=== PATIENT | male | born 1970 | race Caucasian/White ===

== ENCOUNTER 2021-01-21 05:47 | Emergency (ER) | payer OTHER, SELFPAY ==
[2021-01-21 05:49] VITALS: BP 160/92; PULSE 86; RESP 20; TEMP 36.5; O2SAT 98; BMI 24.2
[2021-01-21 06:12] VITALS: BMI 24.2
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
[2021-01-21 06:23] LABS: Basophils # 0.1 K/mm3 (0-0.2); Basophils % 0.3 % (0.1-2.0); Eosinophils # 0.5 K/mm3 (0.0-0.4); Eosinophils % 3.2 % (0.1-12.0); Hematocrit 43.3 % (42.0-52.0); Hemoglobin 14.9 g/dL (14.1-18.0); Lymphocytes # 2.7 K/mm3 (0.7-4.5); Lymphocytes % 18.4 % (10-50); Mean Corpuscular HGB Conc 34.5 g/dL (31.8-35.4); Mean Corpuscular Hemoglobin 30.7 pg (27.0-31.2); Mean Corpuscular Volume 89.1 fl (80-94); Monocytes # 0.9 K/mm3 (0.1-1.0); Monocytes % 5.9 % (1.7-9.3); Neutrophils # 10.8 K/mm3 (1.8-7.8); Neutrophils % 72.4 % (37.0-80.0); Platelet Count 245 K/mm3 (142-424); Red Blood Count 4.86 M/mm3 (4.60-6.20); Red Cell Distribution Width 13.2 % (11.5-17.5); White Blood Count 14.9 K/mm3 (4.8-10.8)
[2021-01-21 06:30] LABS: Chloride 107 mmol/L (98-107); Sodium 141 mmol/L (136-145)
[2021-01-21 06:33] LABS: Alanine Aminotransferase 29 U/L (12-78); Albumin Level 4.5 g/dl (3.5-5.0); Albumin/Globulin Ratio 1.4 (1.1-1.8); Alkaline Phosphatase 97 U/L (38-126); Aspartate Amino Transferase 32 U/L (17-59); Blood Urea Nitrogen 14 mg/dl (9-20); Carbon Dioxide 25 mmol/L (22.0-30.0); Creatinine Clearance Estimated 87 mL/min (50-200); Estimated Glomerular Filt Rate 80 ml/min (>60); GFR (African American) 97 ML/MIN (>60); Globulin 3.2 g/dL (1.3-3.2); Total Protein,Serum 7.7 g/dl (6.3-8.2)
[2021-01-21 06:34] LABS: Calcium 9.3 mg/dl (8.4-10.2); Glucose 118 mg/dl (74-100)
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
[2021-01-21 07:28] LABS: Microscopic, Urine URINE MICROSCOPIC (MICROSCOPIC)
[2021-01-21 07:30] LABS: Appearance,Urine CLEAR (Clear); Bilirubin,Urine Negative (Negative); Blood, Urine Negative (Negative); Color,Urine YELLOW (Yellow); Glucose,Urine (UA) Negative (Negative); Ketones,Urine Negative (Negative); Leukocyte Esterase,Urine Negative (Negative); Nitrate,Urine Negative (Negative); Protein,Urine Negative (Negative); Specific Gravity, Urine <= 1.005 (1.005-1.030); Urobilinogen,Urine 0.2 EU/dl (0.2)
--- NOTE | 2021-01-21 07:32 | PC.NURSE ---
Rad at bedside
[2021-01-21 07:52] LABS: Amorphous Sediment,Urine Trace /lpf
--- NOTE | 2021-01-21 08:11 | PC.NURSE ---
Wet to dry dressing applied to rt elbow per MD request. Pt teaching performed and verbalized understanding of how to perform dressing change himself.
[2021-01-21 08:33] VITALS: BP 136/83; PULSE 82; RESP 18; TEMP 36.5; O2SAT 98
== END 2021-01-21 08:34 | disposition home or self-care (01) ==
PROVIDERS: Emergency Provider Emergency Medicine
DX: S29.011A Strain of muscle and tendon of front wall of thorax, initial encounter (principal); S86.811A Strain of other muscle(s) and tendon(s) at lower leg level, right leg, initial encounter; T07.XXXA Unspecified multiple injuries, initial encounter; V29.9XXA Motorcycle rider (driver) (passenger) injured in unspecified traffic accident, initial encounter; F17.210 Nicotine dependence, cigarettes, uncomplicated; Z23 Encounter for immunization; Z88.0 Allergy status to penicillin
CPT/HCPCS: 70450; 71045; 71275; 72125; 72128; 72131; 72170; 73070; 73090; 73590; 74177; 80053; 81001; 85025; 90715; 96372; 99283

== ENCOUNTER 2021-10-10 15:52 | Observation (INO) | payer OTHER, SELFPAY ==
[2021-10-10 16:06] VITALS: BP 159/88; PULSE 94; RESP 17; TEMP 36.8; O2SAT 99; BMI 24.2
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
--- NOTE | 2021-10-10 16:12 | HMH.EDGENADL ---
ED Disposition Clinical Impression: Acute pancreatitis Qualifiers: Pancreatitis type: unspecified pancreatitis type Acute pancreatitis complication: unspecified Qualified Code(s): K85.90 - Acute pancreatitis without necrosis or infection, unspecified Disposition: Admitted as Observation Condition on Discharge: Good Referrals: Provider,Referral, [Primary Care Provider] - - Critical Care Critical Care Time: No Attestation: On 10/10/21, the high probability of a clinically significant, sudden or life threatening deterioration of the following system(s) required my full and direct attention, intervention and personal management. The time I documented below is in addition to time spent performing reported procedures but includes the following listed in this critical care notation. Medical Decision Making - Medical Records Medical records reviewed: Yes: I reviewed the patient's medical records. - Dash Inquiry Pt receiving controlled substance: No Vital Signs: 10/10/21 16:06 Temperature 98.2 F Temperature Source Oral Pulse Rate [Left Radial] 94 H Respiratory Rate 17 Blood Pressure [Right Arm] 159/88 H Blood Pressure Mean [Right Arm] 111 02 Sat by Pulse Oximetry 99 Oxygen Delivery Method Room Air - Lab Data Lab Results 10/10/21 17:20: WBC 11.1 H, RBC 5.01, Hgb 15.7, Hct 45.7, MCV 91.2, MCH 31.3 H, MCHC 34.3, RDW 13.3, Plt Count 255, MPV 8.6, Neut % (Auto) 68.2, Lymph % (Auto) 19.7, [place] % (Auto) 5.4, Eos % (Auto) 5.0, Baso % (Auto) 1.6, Neut # (Auto) 7.6, Lymph # (Auto) 2.2, [place] # (Auto) 0.6, Eos # (Auto) 0.6 H, Baso # (Auto) 0.2 10/10/21 17:20: Sodium 137, Potassium 3.9, Chloride 104, Carbon Dioxide 24, Anion Gap 12.9, BUN 11, Creatinine 0.80, Estimated Creat Clear 107, Estimated GFR 103, Est GFR ( Amer) 124, Glucose 81, Calcium 9.0, Total Bilirubin 0.9, AST 24, ALT 17, Alkaline Phosphatase 97, Total Protein 7.3, Albumin 4.2, Globulin 3.1, Albumin/Globulin Ratio 1.4 10/10/21 17:20: Lipase 335 H 10/10/21 17:22: Urine Color Yellow, Urine Appearance Clear, Urine pH 6.5, Ur Specific [place] <= 1.005, Urine Protein Negative, Urine Glucose (UA) Negative, Urine Ketones 3+, Urine Blood Negative, Urine Nitrate Negative, Urine Bilirubin 1+ A, Urine Urobilinogen 0.2, Ur Leukocyte Esterase Negative, Urine RBC None, Urine WBC None, Ur Squamous Epith Cells Occasional, Urine Bacteria None Result diagrams: 10/10/21 17:20 10/10/21 17:20 Orders (Tests/Meds): ED MEDICATIONS Generic Name Dose Route Start Last Admin Trade Name Freq PRN Reason Stop Dose Admin Lactated Ringer's 1,000 mls @ 999 mls/hr 10/10/21 17:30 10/10/21 17:27 Lactated Ringer's 1000 Ml Bag IV 10/10/21 18:30 999 mls/hr .[id number] [place] Administration Discontinued Medications Generic Name Dose Route Start Last Admin Trade Name Freq PRN Reason Stop Dose Admin Hydromorphone HCl 1 mg 10/10/21 17:58 10/10/21 18:03 Hydromorphone 2mg/Ml Syringe IV 10/10/21 17:59 1 mg ONCE ONE Administration Ondansetron HCl 8 mg 10/10/21 17:59 10/10/21 18:03 Ondansetron 4mg/2ml Vial IV 10/10/21 18:00 8 mg ONCE ONE Administration ORDERS Category Date Time Status Amylase Stat Lab 10/10/21 18:07 Ordered General Adult HPI - General Stated complaint: ABD pain Time Seen by Provider: 10/10/21 16:13 Source of Information: Patient Limitations: No Limitations - History of Present Illness HPI narrative: left flank pain several days, asoc with nausea Onset (ago): day(s) Radiation: non-radiation Severity: moderate Consistency: constant, intermittent Exacerbating factors: none Associated symptoms: denies other symptoms - Related Data Home Medications Medication Instructions Recorded Confirmed EPINEPHrine [Primatene Mist] 11.7 gm IH NEEDED PRN 01/21/21 01/21/21 Allergies Allergy/AdvReac Type Severity Reaction Status Date / Time Penicillins Allergy Severe Rash Verified 05/19/18 14:43 [facility] History
--- NOTE | 2021-10-10 17:18 | PC.NURSE ---
MARYAM MD on phone with BEVERLY
--- NOTE | 2021-10-10 17:21 | PC.NURSE ---
ED MD at for update on CT scan; awaiting lab results
[2021-10-10 17:27] LABS: Microscopic, Urine URINE MICROSCOPIC (MICROSCOPIC)
[2021-10-10 17:32] LABS: Basophils # 0.2 K/mm3 (0-0.2); Basophils % 1.6 % (0.1-2.0); Eosinophils # 0.6 K/mm3 (0.0-0.4); Hematocrit 45.7 % (42.0-52.0); Hemoglobin 15.7 g/dL (14.1-18.0); Lymphocytes # 2.2 K/mm3 (0.7-4.5); Lymphocytes % 19.7 % (10-50); Mean Corpuscular HGB Conc 34.3 g/dL (31.8-35.4); Mean Corpuscular Hemoglobin 31.3 pg (27.0-31.2); Mean Corpuscular Volume 91.2 fl (80-94); Mean Platelet Volume 8.6 fl (7.4-10.4); Monocytes # 0.6 K/mm3 (0.1-1.0); Monocytes % 5.4 % (1.7-9.3); Neutrophils # 7.6 K/mm3 (1.8-7.8); Neutrophils % 68.2 % (37.0-80.0); Platelet Count 255 K/mm3 (142-424); Red Blood Count 5.01 M/mm3 (4.60-6.20); Red Cell Distribution Width 13.3 % (11.5-17.5); White Blood Count 11.1 K/mm3 (4.8-10.8)
[2021-10-10 17:33] LABS: Appearance,Urine CLEAR (Clear); Blood, Urine Negative (Negative); Color,Urine YELLOW (Yellow); Glucose,Urine (UA) Negative (Negative); Ketones,Urine 3+ (Negative); Leukocyte Esterase,Urine Negative (Negative); Nitrate,Urine Negative (Negative); PH,Urine 6.5 (5.0-8.5); Protein,Urine Negative (Negative); Specific Gravity, Urine <= 1.005 (1.005-1.030); Urobilinogen,Urine 0.2 EU/dl (0.2)
[2021-10-10 17:35] LABS: Lipase 335 U/L (23-300)
[2021-10-10 17:38] LABS: Chloride 104 mmol/L (98-107); Potassium 3.9 mmoL/L (3.5-5.1); Sodium 137 mmol/L (136-145)
[2021-10-10 17:41] LABS: Albumin Level 4.2 g/dl (3.5-5.0); Albumin/Globulin Ratio 1.4 (1.1-1.8); Globulin 3.1 g/dL (1.3-3.2); Total Protein,Serum 7.3 g/dl (6.3-8.2)
[2021-10-10 17:43] LABS: Alanine Aminotransferase 17 U/L (12-78); Alkaline Phosphatase 97 U/L (38-126); Anion Gap 12.9 mEq/L (5-15); Aspartate Amino Transferase 24 U/L (17-59); Bilirubin,Total 0.9 mg/dl (0.2-1.3); Blood Urea Nitrogen 11 mg/dl (9-20); Carbon Dioxide 24 mmol/L (22.0-30.0); Creatinine Clearance Estimated 107 mL/min (50-200); Estimated Glomerular Filt Rate 103 ml/min (>60); GFR (African American) 124 ML/MIN (>60); Glucose 81 mg/dl (74-100)
[2021-10-10 17:56] LABS: Bilirubin,Urine 1+ (Negative)
[2021-10-10 17:57] LABS: Squamous Epithelial Cell,Urine Occasional #/hpf (0-5)
--- NOTE | 2021-10-10 18:17 | PC.NURSE ---
7055 BED ASSIGNMENT REQUESTED. ROOM 215, ALL STAFF NOTIFIED
[2021-10-10 18:25] LABS: Coronavirus 19, PCR Not Detected (NotDetected); Influenza A, PCR Not Detected (NotDetected); Influenza B, PCR Not Detected (NotDetected)
[2021-10-10 18:27] LABS: Amylase 77 U/L (30-110)
[2021-10-10 18:38] VITALS: BP 148/74; PULSE 91; RESP 17; TEMP 36.7; O2SAT 99
[2021-10-10 18:49] VITALS: BMI 22.8
--- NOTE | 2021-10-10 19:49 | PC.NURSE ---
patient up to floor via wheelchair @ this time.
[2021-10-10 21:00] VITALS: O2SAT 99
[2021-10-11] VITALS: BP 158/90; PULSE 76; RESP 22; TEMP 36.8; O2SAT 97
[2021-10-11 04:46] VITALS: BP 126/74; PULSE 75; RESP 20; TEMP 36.8; O2SAT 97
[2021-10-11 05:00] VITALS: BMI 23.1
[2021-10-11 07:02] LABS: Chloride 106 mmol/L (98-107); Sodium 136 mmol/L (136-145)
[2021-10-11 07:03] LABS: Potassium 3.9 mmoL/L (3.5-5.1)
[2021-10-11 07:05] LABS: Alanine Aminotransferase 14 U/L (12-78); Albumin Level 3.7 g/dl (3.5-5.0); Albumin/Globulin Ratio 1.3 (1.1-1.8); Alkaline Phosphatase 89 U/L (38-126); Anion Gap 10.9 mEq/L (5-15); Aspartate Amino Transferase 25 U/L (17-59); Bilirubin,Total 0.8 mg/dl (0.2-1.3); Blood Urea Nitrogen 11 mg/dl (9-20); Carbon Dioxide 23 mmol/L (22.0-30.0); Creatinine Clearance Estimated 103 mL/min (50-200); Estimated Glomerular Filt Rate 103 ml/min (>60); GFR (African American) 124 ML/MIN (>60); Globulin 2.9 g/dL (1.3-3.2); Total Protein,Serum 6.6 g/dl (6.3-8.2)
[2021-10-11 07:06] LABS: Calcium 8.5 mg/dl (8.4-10.2); Glucose 71 mg/dl (74-100)
[2021-10-11 07:28] LABS: Basophils # 0.1 K/mm3 (0-0.2); Eosinophils # 0.6 K/mm3 (0.0-0.4); Eosinophils % 6.3 % (0.1-12.0); Hematocrit 44.4 % (42.0-52.0); Hemoglobin 14.5 g/dL (14.1-18.0); Lymphocytes # 2.1 K/mm3 (0.7-4.5); Lymphocytes % 22.8 % (10-50); Mean Corpuscular HGB Conc 32.7 g/dL (31.8-35.4); Mean Corpuscular Hemoglobin 30.6 pg (27.0-31.2); Mean Corpuscular Volume 93.4 fl (80-94); Mean Platelet Volume 9.2 fl (7.4-10.4); Monocytes # 0.6 K/mm3 (0.1-1.0); Monocytes % 6.1 % (1.7-9.3); Neutrophils # 5.8 K/mm3 (1.8-7.8); Neutrophils % 63.7 % (37.0-80.0); Platelet Count 235 K/mm3 (142-424); Red Blood Count 4.75 M/mm3 (4.60-6.20); Red Cell Distribution Width 13.5 % (11.5-17.5); White Blood Count 9.1 K/mm3 (4.8-10.8)
[2021-10-11 08:00] VITALS: BP 140/89; PULSE 72; RESP 20; TEMP 36.6; O2SAT 98
--- NOTE | 2021-10-11 08:02 | P.CONPHA_ITS ---
[facility] VTE Monitoring - Patient Demographics Admission date: 10/11/21 Report Date: 10/11/21 Time: 08:02 Allergies/Adverse Reactions: Patient Allergies Penicillins Allergy (Severe, Verified 05/19/18 14:43) Rash Height: 1.68 m Weight: 65.408 kg Patient Problems: Current Active Problems Acute pancreatitis (Acute) - VTE Risk Labs: VTE Related Lab Results Hgb 14.5 g/dL (14.1-18.0) 10/11/21 05:55 Hct 44.4 % (42.0-52.0) 10/11/21 05:55 Plt Count 235 K/mm3 (142-424) 10/11/21 05:55 BUN 11 mg/dl (9-20) 10/11/21 05:55 Creatinine 0.80 mg/dl (0.66-1.25) 10/11/21 05:55 Estimated Creat Clear 103 mL/min (50-200) 10/11/21 05:55 Was VTE Risk Assessment Performed: Yes VTE Score: 2 VTE Risk Level: Very Low Risk Clinical Trial Participant: No - Prophylaxis VTE Prophylaxis Ordered?: Yes Types of VTE Prophylaxis: TEDS Knee High
--- NOTE | 2021-10-11 08:24 | HMH.HP ---
*Admission Date: 10/10/21 *Chief complaint: abdominal pain *History of present illness: 51 year old male, with no primary care medical provider, presented to [facility] ER yesterday with a 1 week history of fairly intense upper abdominal pain associated with nausea, vomiting and diarrhea. He has had minimal oral intake for the last week. He denies fever and chills. He has not vomited up blood or passed any blood in his stool. He has no sick contacts and no recent travel. He rarely drinks alcohol but dose smoke cigarettes. [facility] History Medical History: Reports:: Asthma Denies:: Cancer, Diabetes Mellitus Type 1, Diabetes Mellitus Type 2, MRSA *Have you ever received a pneumonia vaccine?: No *Have you received a flu vaccine this season?: No Other Surgeries: Yes: No Previous Surgery - *Social History Last grade of school completed: 9th or 10th Smoking Status: Current every day smoker Tobacco Type: cigarettes # Packs/Day (cigarettes): 2 Alcohol Intake: former Alcohol Intake Frequency:: a few times a month Substance Use Type: marijuana Last Used Substance: days (ago) *Occupational Status:: unemployed Housing: other Household Members: spouse, children *Travel in the last 8 weeks: None Family Hx:: Cancer Review of Systems - Constitutional Denies chills, Denies fever(s) - Eyes Denies change in vision - ENT Denies change in voice - *Cardiovascular Denies chest pain - *Respiratory Denies cough - *Genitourinary Denies difficulty urinating - *Musculoskeletal Denies joint pain - Integumentary/Breasts Denies rash - *Neurologic Denies abnormal walking, Denies dizziness - Psychiatric Denies anxiety - Endocrine Denies excessive sweating Meds Home Medications Medication Instructions Recorded Confirmed Type EPINEPHrine [Primatene Mist] 1 inh PO NEEDED PRN 10/10/21 10/10/21 History Allergies Allergy/AdvReac Type Severity Reaction Status Date / Time Penicillins Allergy Severe Rash Verified 05/19/18 14:43 Exam Vital signs and Labs for Last 24 Hours: Temp Pulse Resp BP Pulse Ox 98.3 F 75 20 126/74 97 10/11/21 04:46 10/11/21 04:46 10/11/21 04:46 10/11/21 04:46 10/11/21 04:46 Laboratory Results - last 24 hr 10/10/21 17:20: WBC 11.1 H, RBC 5.01, Hgb 15.7, Hct 45.7, MCV 91.2, MCH 31.3 H, MCHC 34.3, RDW 13.3, Plt Count 255, MPV 8.6, Neut % (Auto) 68.2, Lymph % (Auto) 19.7, [place] % (Auto) 5.4, Eos % (Auto) 5.0, Baso % (Auto) 1.6, Neut # (Auto) 7.6, Lymph # (Auto) 2.2, [place] # (Auto) 0.6, Eos # (Auto) 0.6 H, Baso # (Auto) 0.2 10/10/21 17:20: Sodium 137, Potassium 3.9, Chloride 104, Carbon Dioxide 24, Anion Gap 12.9, BUN 11, Creatinine 0.80, Estimated Creat Clear 107, Estimated GFR 103, Est GFR ( Amer) 124, Glucose 81, Calcium 9.0, Total Bilirubin 0.9, AST 24, ALT 17, Alkaline Phosphatase 97, Total Protein 7.3, Albumin 4.2, Globulin 3.1, Albumin/Globulin Ratio 1.4 10/10/21 17:20: Lipase 335 H 10/10/21 17:20: Amylase 77 10/10/21 17:22: Urine Color Yellow, Urine Appearance Clear, Urine pH 6.5, Ur Specific [place] <= 1.005, Urine Protein Negative, Urine Glucose (UA) Negative, Urine Ketones 3+, Urine Blood Negative, Urine Nitrate Negative, Urine Bilirubin 1+ A, Urine Urobilinogen 0.2, Ur Leukocyte Esterase Negative, Urine RBC None, Urine WBC None, Ur Squamous Epith Cells Occasional, Urine Bacteria None 10/10/21 18:21: SARS-CoV-2 (PCR) Not detected, Influenza A Untype (PCR) Not detected, Influenza Type B (PCR) Not detected 10/11/21 05:55: WBC 9.1, RBC 4.75, Hgb 14.5, Hct 44.4, MCV 93.4, MCH 30.6, MCHC 32.7, RDW 13.5, Plt Count 235, MPV 9.2, Neut % (Auto) 63.7, Lymph % (Auto) 22.8, [place] % (Auto) 6.1, Eos % (Auto) 6.3, Baso % (Auto) 1.0, Neut # (Auto) 5.8, Lymph # (Auto) 2.1, [place] # (Auto) 0.6, Eos # (Auto) 0.6 H, Baso # (Auto) 0.1 10/11/21 05:55: Sodium 136, Potassium 3.9, Chloride 106, Carbon Dioxide 23, Anion Gap 10.9, BUN 11, Creatinine 0.80, Estimated Creat Clear 103, Estimated GFR 103, Est GFR (
[2021-10-11 12:00] VITALS: BP 149/65; PULSE 70; RESP 20; TEMP 36.6; O2SAT 98
--- NOTE | 2021-10-11 15:49 | PC.NURSE ---
patient has done well. complaints of hunger earlier in shift. tolerating clears. states pain is just annoying and at this time has not required pain medication. rings out as needed. vitals stable.
[2021-10-11 16:00] VITALS: BP 151/82; PULSE 74; RESP 22; TEMP 36.9; O2SAT 96
[2021-10-11 20:00] VITALS: BP 156/98; PULSE 84; RESP 18; TEMP 36.7; O2SAT 96
[2021-10-12] VITALS: BP 156/89; PULSE 78; RESP 17; TEMP 37; O2SAT 97
[2021-10-12 04:00] VITALS: BP 144/95; PULSE 75; RESP 16; TEMP 36.9; O2SAT 95
--- NOTE | 2021-10-12 04:56 | PC.NURSE ---
Patient has requested one dose of pain medication this RN's shift with favorable results.
[2021-10-12 05:00] VITALS: BMI 22.8
[2021-10-12 07:49] LABS: Basophils # 0.1 K/mm3 (0-0.2); Basophils % 0.4 % (0.1-2.0); Eosinophils # 0.5 K/mm3 (0.0-0.4); Eosinophils % 4.1 % (0.1-12.0); Hematocrit 44.1 % (42.0-52.0); Hemoglobin 15.2 g/dL (14.1-18.0); Lymphocytes # 1.9 K/mm3 (0.7-4.5); Lymphocytes % 17.1 % (10-50); Mean Corpuscular HGB Conc 34.4 g/dL (31.8-35.4); Mean Corpuscular Hemoglobin 30.5 pg (27.0-31.2); Mean Corpuscular Volume 88.9 fl (80-94); Mean Platelet Volume 8.5 fl (7.4-10.4); Monocytes # 0.6 K/mm3 (0.1-1.0); Monocytes % 5.2 % (1.7-9.3); Neutrophils # 8.1 K/mm3 (1.8-7.8); Neutrophils % 73.2 % (37.0-80.0); Platelet Count 248 K/mm3 (142-424); Red Blood Count 4.97 M/mm3 (4.60-6.20); Red Cell Distribution Width 12.6 % (11.5-17.5); White Blood Count 11.1 K/mm3 (4.8-10.8)
[2021-10-12 08:00] VITALS: BP 115/106; PULSE 68; RESP 16; TEMP 36.8; O2SAT 99
[2021-10-12 08:07] LABS: Chloride 106 mmol/L (98-107); Sodium 140 mmol/L (136-145)
[2021-10-12 08:08] LABS: Potassium 3.8 mmoL/L (3.5-5.1)
[2021-10-12 08:10] LABS: Alanine Aminotransferase 15 U/L (12-78); Alkaline Phosphatase 101 U/L (38-126); Amylase 74 U/L (30-110); Anion Gap 14.8 mEq/L (5-15); Aspartate Amino Transferase 28 U/L (17-59); Bilirubin,Total 0.7 mg/dl (0.2-1.3); Blood Urea Nitrogen 8 mg/dl (9-20); Carbon Dioxide 23 mmol/L (22.0-30.0); Creatinine Clearance Estimated 102 mL/min (50-200); Estimated Glomerular Filt Rate 103 ml/min (>60); GFR (African American) 124 ML/MIN (>60)
[2021-10-12 08:11] LABS: Albumin Level 4.1 g/dl (3.5-5.0); Albumin/Globulin Ratio 1.3 (1.1-1.8); Calcium 8.8 mg/dl (8.4-10.2); Globulin 3.2 g/dL (1.3-3.2); Glucose 102 mg/dl (74-100); Lipase 321 U/L (23-300); Total Protein,Serum 7.3 g/dl (6.3-8.2)
--- NOTE | 2021-10-12 08:29 | P.PN_ITS ---
Internal Medicine - PN: Subj *Date: 10/12/21 *Time: 08:29 Interval history: Patient feels much better today, anxious to go home. Exam Vital signs and Labs for Last 24 Hours: Temp Pulse Resp BP Pulse Ox 98.5 F 75 16 144/95 H 95 10/12/21 04:00 10/12/21 04:00 10/12/21 04:00 10/12/21 04:00 10/12/21 04:00 Laboratory Results - last 24 hr 10/12/21 07:17: WBC 11.1 H, RBC 4.97, Hgb 15.2, Hct 44.1, MCV 88.9, MCH 30.5, MCHC 34.4, RDW 12.6, Plt Count 248, MPV 8.5, Neut % (Auto) 73.2, Lymph % (Auto) 17.1, [place] % (Auto) 5.2, Eos % (Auto) 4.1, Baso % (Auto) 0.4, Neut # (Auto) 8.1 H, Lymph # (Auto) 1.9, [place] # (Auto) 0.6, Eos # (Auto) 0.5 H, Baso # (Auto) 0.1 10/12/21 07:17: Sodium 140, Potassium 3.8, Chloride 106, Carbon Dioxide 23, Anion Gap 14.8, BUN 8 L D, Creatinine 0.80, Estimated Creat Clear 102, Estimated GFR 103, Est GFR ( Amer) 124, Glucose 102 H, Calcium 8.8, Total Bilirubin 0.7, AST 28, ALT 15, Alkaline Phosphatase 101, Total Protein 7.3, Albumin 4.1 D , Globulin 3.2, Albumin/Globulin Ratio 1.3, Amylase 74, Lipase 321 H Vital Signs - 24 hr 10/11/21 12:00 10/11/21 16:00 10/11/21 20:00 Temperature 97.8 F 98.5 F 98.1 F Pulse Rate [Left Radial] 70 74 84 Respiratory Rate 20 22 18 Blood Pressure [Right Arm] 149/65 H 151/82 H 156/98 H 02 Sat by Pulse Oximetry 98 96 96 10/12/21 00:00 10/12/21 04:00 Temperature 98.6 F 98.5 F Pulse Rate [Left Radial] 78 75 Respiratory Rate 17 16 Blood Pressure [Right Arm] 156/89 H 144/95 H 02 Sat by Pulse Oximetry 97 95 I & O for Last 24 hours: Intake & Output 10/09/21 10/10/21 10/11/21 10/12/21 23:59 23:59 23:59 23:59 Intake Total 2416 / 2416 1693 / 1693 Output Total 1350 / 1350 Balance 1066 / 1066 1693 / 1693 Weight 142 lb 4.8 oz 144 lb 3.2 oz 142 lb 1.6 oz - Constitutional no acute distress - *Routine HEENT Exam Head: Present: normocephalic Eye: Present: EOMI, PERRL ENT: Present: mucous membranes moist - *Routine Neck Exam Present: supple. Absent: lymphadenopathy - *Routine Respiratory Exam Present: CTA bilaterally - *Routine Cardiovascular Exam Present: RRR - *Routine Abdominal Exam Present: soft, normoactive bowel sounds. Absent: tenderness - *Routine Extremities Exam Absent: cyanosis, clubbing, edema - *Routine Skin Exam Present: warm. Absent: rash - *Routine Neurological Exam Present: alert, oriented X3 Assessment and Plan (1) Nicotine dependence, unspecified, uncomplicated Status: Acute Category: Medical Code(s): F17.200 - Nicotine dependence, unspecified, uncomplicated (2) Acute pancreatitis Status: Acute Qualifiers: Pancreatitis type: unspecified pancreatitis type Acute pancreatitis complication: unspecified Qualified Code(s): K85.90 - Acute pancreatitis without necrosis or infection, unspecified Category: Medical Code(s): K85.90 - Acute pancreatitis without necrosis or infection, unspecified - Assessment and plan all Dx Assessment and Plan for all problems:: OK to discharge home with office f/u in 5 days.
[2021-10-12 09:20] VITALS: BP 165/98
--- NOTE | 2021-10-14 15:42 | CARE MANAGER ---
Attempted to contact patient related to hospital discharge follow up. Left VM message. TONY Mensah
--- NOTE | 2021-10-15 14:01 | CARE MANAGER ---
Contacted patient's . Patient is doing better. He has less pain and has tolerated some solid food. He is being cautious with eating. Aware of follow up appointment. Denies questions or concerns at this time.
--- NOTE | 2021-10-15 21:57 | HMH.DCSUM ---
General - General Admission date:: 10/10/21 Discharge date: 10/12/21 HPI HPI: 51 year old male, with no primary care medical provider, presented to [facility] ER yesterday with a 1 week history of fairly intense upper abdominal pain associated with nausea, vomiting and diarrhea. He has had minimal oral intake for the last week. He denies fever and chills. He has not vomited up blood or passed any blood in his stool. He has no sick contacts and no recent travel. He rarely drinks alcohol but dose smoke cigarettes. Hospital Course Hospital Course: By 10/12/2019, the patient was feeling better. He was started on clear liquids. His abdominal pelvic CT showed some mesenteric fascial plane surrounding the pancreas compatible with pancreatitis along with bilateral nonspecific perinephric stranding reflecting acute versus chronic inflammatory change. By 10/12/2021, the patient was much better and anxious to go home. His lipase improved slightly. He was stable to discharge and will follow up in 1 week. Objective Vital signs: Temp Pulse Resp BP Pulse Ox 98.2 F 68 16 165/98 H 99 10/12/21 08:00 10/12/21 08:00 10/12/21 08:00 10/12/21 09:20 10/12/21 08:00 Narrative: - Constitutional no acute distress - *Routine HEENT Exam Head: Present: normocephalic Eye: Present: EOMI, PERRL ENT: Present: mucous membranes moist - *Routine Neck Exam Present: supple. Absent: lymphadenopathy - *Routine Respiratory Exam Present: rhonchi. Absent: wheezes - *Routine Cardiovascular Exam Present: RRR - *Routine Abdominal Exam Present: soft, normoactive bowel sounds, tenderness (epigastric). Absent: rebound, guarding - *Routine Rectal Exam Rectal:: deferred - *Routine Genitalia Exam Genitalia:: deferred - *Routine Extremities Exam Absent: cyanosis, clubbing, edema - *Routine Skin Exam Present: warm. Absent: rash - *Routine Neurological Exam Present: alert, oriented X3 DS: Diagnosis - Discharge Diagnosis (1) Nicotine dependence, unspecified, uncomplicated Status: Acute (2) Acute pancreatitis Status: Acute Discharge Plan - Patient Discharge Instructions ACTIVITY: Continue current activity DIET: other (bland, low fat/protein) Additional Instructions: 08/19/[address] Garcia Patient Instructions: DI for Pancreatitis - Follow up Plan Follow up with: Jun Garcia MD [Staff Physician] - 10/17/21 Disposition: Home, Self-Care Condition at discharge:: Improved Home Medications: Home Medications Medication Instructions Recorded Confirmed Type EPINEPHrine [Primatene Mist] 1 inh PO NEEDED PRN 10/10/21 10/10/21 History Prescriptions/Medication Reconciliation: Continued EPINEPHrine [Primatene Mist] 1 inh PO NEEDED PRN PRN Reason: asthma - Problem Reconciliation Problems Reviewed?: Yes
== END 2021-10-12 09:25 | disposition home or self-care (01) ==
LOC: ER 18:11 → 2ND 20:50
PROVIDERS: Admitting Provider Family Medicine; Emergency Provider Emergency Medicine; Visit Provider Family Medicine
DX: K85.90 Acute pancreatitis without necrosis or infection, unspecified (principal); Z20.822 Contact with and (suspected) exposure to COVID-19; F17.210 Nicotine dependence, cigarettes, uncomplicated
CPT/HCPCS: 36415; 74176; 80053; 81001; 82150; 83690; 85025; 96375; 99285; C9803; G0378; J2405; U0003; U0005

== ENCOUNTER 2024-05-03 16:05 | Emergency (ER) | payer OTHER, SELFPAY ==
[2024-05-03 16:06] VITALS: BP 203/124; BP 207/126; PULSE 78; RESP 16; TEMP 36.7; O2SAT 99; BMI 19.3
--- NOTE | 2024-05-03 16:13 | ED_ITS ---
<Statement entered by Jessica Pelaez DO - 05/04/24 00:24> I was consulted by the SURESH, and we discussed the complexity of the problems being addressed. I approved the treatment and management plan for this patient's care in the emergency department, thus performing a substantive portion of the medical decision making. Jessica Pelaez DO Discharge Plan Disposition Patient Disposition: Home, Self-Care Condition: Good Prescriptions Prescriptions: New lisinopril 10 mg tablet 10 mg PO DAILY Qty: 10 0RF No Action epinephrine 11.7 GM HFA aerosol inhaler 1 inh PO NEEDED PRN (Reason: asthma) Rx Instructions: pt takes over the counter Referrals Follow up/Referrals: Gopal Gomez DO [Staff Physician] - See instructions Provider,Referral, [Primary Care Provider] - See instructions Activity Restrictions/Add. Instructions Additional Instructions/Restrictions: I have sent medication into your pharmacy for your blood pressure. Be sure to pick it up and start it tomorrow. I have referred you to Dr. Gopal Gomez as your primary care. Please call make an appointment in the morning. Clinical Impressions Clinical Impression: Hypertension, uncontrolled Headache Qualifiers: Headache type: unspecified Headache chronicity pattern: acute headache I ntractability: not intractable Qualified Code(s): R51.9 - Headache, unspecified Print Language Print Language: Swedish Discharge ED Provider: Jessica Pelaez General Adult HPI <HECTOR Reich - Last Filed: 05/03/24 22:05> General Chief complaint: Recheck/Abnormal Lab/Rx Stated complaint: HBP 183/115 Time Seen by Provider: 05/03/24 16:13 History of Present Illness HPI narrative: Patient presents for evaluation of high blood pressure and headache. Patient has not seen a doctor in 2 years. He has noticed occasionally that his blood pressure has been trending up. He does not currently have a PCP. Patient also reports that he has had a headache that is generalized not acute just been progressive for a couple of days that is not responsive to any of his [id number] treatments. He denies any fever chills hemoptysis hematochezia melena nausea vomit diarrhea vision changes change in level of consciousness or sensorium. Related Data Home Medications ?Medication ?Instructions ?Recorded ?Confirmed epinephrine 0.125 mg/actuation 1 inh PO NEEDED PRN asthma 10/10/21 10/10/21 aerosol inhaler Previous Rx's ?Medication ?Instructions ?Recorded lisinopril 10 mg tablet 10 mg PO DAILY #10 tabs 05/03/24 Allergies Allergy/AdvReac Type Severity Reaction Status Date / Time Penicillins Allergy Severe Rash Verified 05/19/18 14:43 [facility] <HECTOR Reich - Last Filed: 05/03/24 22:05> [facility] Disclaimer: The information contained in this section may have been updated after the patient was seen, as this information can be updated by other users. Social History Smoking Status: Current every day smoker tobacco type: cigarettes packs per day: 2 second hand exposure: Yes alcohol intake: former substance use type: marijuana current occupational status: unemployed Travel in the last 8 weeks: None household members: spouse and children housing: other caffeine: Yes Other Medical History Have you received the Flu Vaccine for this season: No Have you received the Pneumonia Vaccine: No <HECTOR Reich - Last Filed: 05/03/24 22:05> ROS Obtained: Yes Systems reviewed as appropriate & no additional complaints except as documented Physical Exam <HECTOR Reich - Last Filed: 05/03/24 22:05> General General appearance: alert and in no apparent distress Respiratory Respiratory exam: Present normal lung sounds bilaterally Cardiovascular Cardiovascular exam: Present regular rate Neurological Exam Neurological exam: Present alert and oriented X3 Medical Decision Making <HECTOR Reich - Last Filed: 05/03/24 22:05> Medical Records Medical records reviewed: Yes I reviewed the patient's medical records. Screening: Per USPSTF and CDC recommendations, given the prevalence of disease in our region, it is our hospital?s policy to screen for HIV and viral Hepatitis for all patients aged 18 and over and those with ongoing risk factors. Dash Inquiry Pt receiving controlled substance: No Vital Signs: 05/03/24 16:06 05/03/24 16:30 05/03/24 17:00 Temperature 98.0 F Temperature Source Oral Pulse Rate 76 85 Pulse Rate [Radial] 78 Respiratory Rate 16 Blood Pressure 152/109 H 174/106 H Blood Pressure [Left Arm] 203/124 H Blood Pressure [Right Arm] 207/126 H Blood Pressure Mean 142 Blood Pressure Mean [Left Arm] 150 Blood Pressure Mean [Right Arm] 153 Blood Pressure Source Blood Pressure Source [Left Arm] Automatic Cuff Blood Pressure Source [Right Arm] Automatic Cuff Blood Pressure Position Blood Pressure Position [Left Arm] Supine Blood Pressure Position [Right Arm] Sitting 02 Sat by Pulse Oximetry 99 97 95 Oxygen Delivery Method Room Air 05/03/24 17:30 05/03/24 18:00 05/03/24 18:39 Temperature 98.0 F Temperature Source Oral Pulse Rate 70 71 66 Pulse Rate [Radial] Respiratory Rate 16 Blood Pressure 169/104 H 174/105 H 184/116 H Blood Pressure [Left Arm] Blood Pressure [Right Arm] Blood Pressure Mean 132 128 Blood Pressure Mean [Left Arm] Blood Pressure Mean [Right Arm] Blood Pressure Source Automatic Cuff Blood Pressure Source [Left Arm] Blood Pressure Source [Right Arm] Blood Pressure Position Sitting Blood Pressure Position [Left Arm] Blood Pressure Position [Right Arm] 02 Sat by Pulse Oximetry 95 97 Oxygen Delivery Method Room Air Lab Data Lab results reviewed: Yes I reviewed the patient's lab results. Lab Results 05/03/24 17:18: WBC 12.2 H, RBC 4.92, Hgb 15.9, Hct 45.0, MCV 91.5, MCH 32.2 H, MCHC 35.2, RDW 13.2, Plt Count 207, MPV 8.4, Neut % (Auto) 64.9, Lymph % (Auto) 24.7, [place] % (Auto) 6.4, Eos % (Auto) 3.2, Baso % (Auto) 0.7, Neut # (Auto) 7.9 H, Lymph # (Auto) 3.0, [place] # (Auto) 0.8, Eos # (Auto) 0.4, Baso # (Auto) 0.1, PT 10.4, INR 0.92, Sodium 138, Potassium 3.9, Chloride 107, Carbon Dioxide 25, Anion Gap 9.9, BUN 18, Creatinine 0.90, Estimated Creat Clear 75, Estimated GFR 89, Est GFR ( Amer) 108, Glucose 89, Calcium 9.5, Magnesium 2.0, Total Bilirubin 0.6, AST 32, ALT 14, Alkaline Phosphatase 90, Troponin I < 0.01, Total Protein 7.1, Albumin 4.4, Globulin 2.7, Albumin/Globulin Ratio 1.6, TSH 2.03, F ree T4 Index 4.1 L, Thyroxine (T4) 11.2 H, T3 Uptake 37, HIV 1&2 Antibody Rapid Nonreactive 05/03/24 17:18 05/03/24 17:18 Orders (Tests/Meds): ED MEDICATIONS Discontinued Medications Generic Name Dose Route Start Last Admin Trade Name Fernando PRN Reason Stop Dose Admin Acetaminophen 1,000 mg 05/03/24 16:52 05/03/24 17:23 Acetaminophen 1,000mg/100ml Vial IV 05/03/24 16:53 1,000 mg ONCE ONE Administration ORDERS Category Date Time Status Chest XR 2 view (NOT portable) [XR chest 2V] Stat Exams 05/03/24 16:52 Completed CBC w/Auto Diff [Complete Blood Count Auto Diff] Stat Lab 05/03/24 17:18 Completed CMP [Comprehensive Metabolic Panel] Stat Lab 05/03/24 17:18 Completed HIV (1&2) Antibody Rapid Stat Lab 05/03/24 17:18 Completed Hep C Ab with Reflex to RNA Stat Lab 05/03/24 17:18 Received INR [Prothrombin Time INR] Stat Lab 05/03/24 17:18 Completed Magnesium Stat Lab 05/03/24 17:18 Completed Thyroid Panel Stat Lab 05/03/24 17:18 Completed Trop I [Troponin I] Stat Lab 05/03/24 17:18 Completed Medical Decision Narrative: In summary patient is a 53-year-old male who presents to the emergency department for evaluation of blood pressure and chest pain. Patient is significantly hypertensive on arrival with a blood pressure of 207 systolic 126 diastolic but breathing 16 times a minute with a heart rate of 78 satting at 99% on room air upon arrival, afebrile. Physical exam is remarkable for no nuchal rigidity or meningeal signs, pupils equal round reactive to light, [place] Coma Score 15 awake alert and oriented person place and circumstance, normal breath sounds normal heart sounds normal sinus rhythm on the bedside monitor satting at 99% on room air. Differential diagnosis includes uncontrolled essential hypertension versus tension headache versus endorgan damage etc. Initial workup will be conducted with hematologic labs plain film chest x-ray urinalysis. Initial interventions include headache cocktail. Initial workup reviewed by me shows that his hematologic labs are nonactionable plain film chest x-ray shows no acute processes via my informal interpretation. Upon repeat evaluation patient had complete resolution of his headache after initial intervention. Given this patient is appropriate for discharge with a prescription for lisinopril sent to his pharmacy and referral to Dr. Gopal Gomez for a PCP. <Jessica Pelaez, DO - Last Filed: 05/03/24 20:22> Vital Signs: 05/03/24 16:06 05/03/24 16:30 05/03/24 17:00 Temperature 98.0 F Temperature Source Oral Pulse Rate 76 85 Pulse Rate [Radial] 78 Respiratory Rate 16 Blood Pressure 152/109 H 174/106 H Blood Pressure [Left Arm] 203/124 H Blood Pressure [Right Arm] 207/126 H Blood Pressure Mean 142 Blood Pressure Mean [Left Arm] 150 Blood Pressure Mean [Right Arm] 153 Blood Pressure Source Blood Pressure Source [Left Arm] Automatic Cuff Blood Pressure Source [Right Arm] Automatic Cuff Blood Pressure Position Blood Pressure Position [Left Arm] Supine Blood Pressure Position [Right Arm] Sitting 02 Sat by Pulse Oximetry 99 97 95 Oxygen Delivery Method Room Air 05/03/24 17:30 05/03/24 18:00 05/03/24 18:39 Temperature 98.0 F Temperature Source Oral Pulse Rate 70 71 66 Pulse Rate [Radial] Respiratory Rate 16 Blood Pressure 169/104 H 174/105 H 184/116 H Blood Pressure [Left Arm] Blood Pressure [Right Arm] Blood Pressure Mean 132 128 Blood Pressure Mean [Left Arm] Blood Pressure Mean [Right Arm] Blood Pressure Source Automatic Cuff Blood Pressure Source [Left Arm] Blood Pressure Source [Right Arm] Blood Pressure Position Sitting Blood Pressure Position [Left Arm] Blood Pressure Position [Right Arm] 02 Sat by Pulse Oximetry 95 97 Oxygen Delivery Method Room Air Lab Data Lab Results 05/03/24 17:18: WBC 12.2 H, RBC 4.92, Hgb 15.9, Hct 45.0, MCV 91.5, MCH 32.2 H, MCHC 35.2, RDW 13.2, Plt Count 207, MPV 8.4, Neut % (Auto) 64.9, Lymph % (Auto) 24.7, [place] % (Auto) 6.4, Eos % (Auto) 3.2, Baso % (Auto) 0.7, Neut # (Auto) 7.9 H, Lymph # (Auto) 3.0, [place] # (Auto) 0.8, Eos # (Auto) 0.4, Baso # (Auto) 0.1, PT 10.4, INR 0.92, Sodium 138, Potassium 3.9, Chloride 107, Carbon Dioxide 25, Anion Gap 9.9, BUN 18, Creatinine 0.90, Estimated Creat Clear 75, Estimated GFR 89, Est GFR ( Amer) 108, Glucose 89, Calcium 9.5, Magnesium 2.0, Total Bilirubin 0.6, AST 32, ALT 14, Alkaline Phosphatase 90, Troponin I < 0.01, Total Protein 7.1, Albumin 4.4, Globulin 2.7, Albumin/Globulin Ratio 1.6, TSH 2.03, F ree T4 Index 4.1 L, Thyroxine (T4) 11.2 H, T3 Uptake 37, HIV 1&2 Antibody Rapid Nonreactive Orders (Tests/Meds): ED MEDICATIONS Discontinued Medications Generic Name Dose Route Start Last Admin Trade Name Freq PRN Reason Stop Dose Admin Acetaminophen 1,000 mg 05/03/24 16:52 05/03/24 17:23 Acetaminophen 1,000mg/100ml Vial IV 05/03/24 16:53 1,000 mg ONCE ONE Administration ORDERS Category Date Time Status Chest XR 2 view (NOT portable) [XR chest 2V] Stat Exams 05/03/24 16:52 Completed CBC w/Auto Diff [Complete Blood Count Auto Diff] Stat Lab 05/03/24 17:18 Completed CMP [Comprehensive Metabolic Panel] Stat Lab 05/03/24 17:18 Completed HIV (1&2) Antibody Rapid Stat Lab 05/03/24 17:18 Completed Hep C Ab with Reflex to RNA Stat Lab 05/03/24 17:18 Received INR [Prothrombin Time INR] Stat Lab 05/03/24 17:18 Completed Magnesium Stat Lab 05/03/24 17:18 Completed Thyroid Panel Stat Lab 05/03/24 17:18 Completed Trop I [Troponin I] Stat Lab 05/03/24 17:18 Completed ECG Data Tracing #1: I reviewed this ECG and interpreted as documented below: Normal sinus rhythm with short VT interval with a VT interval of [address] changes concerning for ischemia. Criteria for left ventricular hypertrophy ECG initial impression date: 05/03/24 ECG initial impression time: 20:21 Critical Care <HECTOR Reich - Last Filed: 05/03/24 22:05> Critical Care Time Critical Care Time: No
[2024-05-03 16:30] VITALS: BP 152/109; PULSE 76; O2SAT 97
--- NOTE | 2024-05-03 16:52 | XR_ITS ---
PROCEDURE INFORMATION: Exam: XR Chest Exam date and time: 05/03/2024 5:02 PM Age: 53 years old Clinical indication: Cardiovascular condition or disease; Other: Malignant hypertension TECHNIQUE: Imaging protocol: Radiologic exam of the chest. Views: 2 views. COMPARISON: CR XR CHEST 2V 05/03/2024 5:02 PM FINDINGS: Lungs: There is mild coarsening of the bronchovascular markings with hyperinflation suggesting underlying obstructive airways disease. Pleural spaces: No large effusion or pneumothorax. Heart/Mediastinum: No evidence of mediastinal widening or cardiac silhouette enlargement; the mediastinum and heart appear within normal limits for contour and size. Bones/joints: No evidence of acute osseous abnormalities within the visualized portions of the thoracic spine and ribs. Osseous structures appear appropriate for patient age. IMPRESSION: No dense parenchymal consolidation, pleural effusion, or pneumothorax.
[2024-05-03 17:00] VITALS: BP 174/106; PULSE 85; O2SAT 95
--- NOTE | 2024-05-03 17:08 | ECG_ITS ---
APPROVED REPORT Exam: Resting ECG HR:77 bpm ECG Measurements Heart Rate 77 AXES VT 116 P 80 QRSd 99 QRS 87 QT 395 T -70 QTc 426 Conclusion SINUS RHYTHM WITH SHORT VT INTERVAL POSSIBLE RIGHT ATRIAL ENLARGEMENT [0.25mV P-WAVE] POSSIBLE LEFT ATRIAL ENLARGEMENT [-0.1mV P-WAVE IN V1/V2] LEFT VENTRICULAR HYPERTROPHY AND ST-T CHANGE [VOLTAGE CRITERIA PLUS ST/T ABNORMALITY] ABNORMAL ECG Electronically signed by : EBONY ECHAVARRIA, 05/04/2024 00:47:20
[2024-05-03] MEDS: ACETAMINOPHEN 1,000MG/100ML VIAL 1000 MG IV (17:23)
[2024-05-03 17:30] VITALS: BP 169/104; PULSE 70; O2SAT 95
[2024-05-03 17:41] LABS: Basophils # 0.1 K/mm3 (0-0.2); Basophils % 0.7 % (0.1-2.0); Eosinophils # 0.4 K/mm3 (0.0-0.4); Eosinophils % 3.2 % (0.1-12.0); Hemoglobin 15.9 g/dL (14.1-18.0); Lymphocytes % 24.7 % (10-50); Mean Corpuscular HGB Conc 35.2 g/dL (31.8-35.4); Mean Corpuscular Hemoglobin 32.2 pg (27.0-31.2); Mean Corpuscular Volume 91.5 fl (80-94); Mean Platelet Volume 8.4 fl (7.4-10.4); Monocytes # 0.8 K/mm3 (0.1-1.0); Monocytes % 6.4 % (1.7-9.3); Neutrophils # 7.9 K/mm3 (1.8-7.8); Neutrophils % 64.9 % (37.0-80.0); Platelet Count 207 K/mm3 (142-424); Red Blood Count 4.92 M/mm3 (4.60-6.20); Red Cell Distribution Width 13.2 % (11.5-17.5); White Blood Count 12.2 K/mm3 (4.8-10.8)
[2024-05-03 17:53] LABS: Alanine Aminotransferase 14 U/L (12-78); Albumin Level 4.4 g/dl (3.5-5.0); Albumin/Globulin Ratio 1.6 (1.1-1.8); Alkaline Phosphatase 90 U/L (38-126); Anion Gap 9.9 mEq/L (5-15); Aspartate Amino Transferase 32 U/L (17-59); Bilirubin,Total 0.6 mg/dl (0.2-1.3); Blood Urea Nitrogen 18 mg/dl (9-20); Calcium 9.5 mg/dl (8.4-10.2); Carbon Dioxide 25 mmol/L (22.0-30.0); Chloride 107 mmol/L (98-107); Creatinine Clearance Estimated 75 mL/min (50-200); Estimated Glomerular Filt Rate 89 ml/min (>60); GFR (African American) 108 ML/MIN (>60); Globulin 2.7 g/dL (1.3-3.2); Glucose 89 mg/dl (74-100); Potassium 3.9 mmoL/L (3.5-5.1); Sodium 138 mmol/L (136-145); Total Protein,Serum 7.1 g/dl (6.3-8.2)
[2024-05-03 18:00] VITALS: BP 174/105; PULSE 71; O2SAT 97
[2024-05-03 18:05] LABS: INR 0.92 (0.9-1.1); Prothrombin Time 10.4 seconds (10.1-12.5)
[2024-05-03 18:08] LABS: Troponin I < 0.01 ng/ml (0.00-0.034)
[2024-05-03 18:12] LABS: Free Thyroxine Index 4.1 ug/dL (5.93-13.13); T4 (Thyroxine) 11.2 ug/dl (5.53-11.0); Triiodothryronine (T3) Uptake 37 % (23.5-40.5)
[2024-05-03 18:25] LABS: Thyroid Stimulating Hormone 2.03 uIU/mL (0.465-4.68)
[2024-05-03 18:34] LABS: HIV (1&2) Antibody Rapid NONREACTIVE (NONREACTIVE)
[2024-05-03 18:39] VITALS: BP 184/116; PULSE 66; RESP 16; TEMP 36.7; O2SAT 98
[2024-05-05 05:15] LABS: HCV Ab Non Reactive (Non Reactive)
== END 2024-05-03 18:39 | disposition home or self-care (01) ==
PROVIDERS: Physician Assistant; Emergency Provider Emergency Medicine
DX: R51.9 Headache, unspecified (principal); I10 Essential (primary) hypertension
CPT/HCPCS: 71046; 80050; 80053; 83735; 84436; 84443; 84479; 84484; 85025; 85610; 86803; 87389; 93005; 96374; 99285; J0131

== ENCOUNTER 2024-05-27 10:06 | Outpatient (CLI) | payer OTHER, SELFPAY ==
--- NOTE | 2024-05-27 10:09 | CT_ITS ---
FINAL REPORT TECHNIQUE: Thin section axial images were obtained from the lung apices to the upper abdomen by computed tomography. Reformatted images were obtained and reviewed. This study was performed with techniques to keep radiation doses al low as reasonably achievable (ALARA). Individualized dose reduction techniques using automated exposure control or adjustment of mA and/or kV according to the patient's size were employed. CLINICAL HISTORY: lung cancer screening current smoker 1.5ppd x 37 years COMPARISON: CTA of the chest 01/21/2021 FINDINGS: CHEST CT LOW DOSE 54-year-old male, current smoker, 31-cwzb-gbzb history. CTDI vol (mGy): 2.9 DLP (mGy-cm): 106.29 There is no axillary adenopathy. There is an enlarged precarinal node, measuring 24 mm in diameter, similar to the previous CT of 2020, likely reactive. The heart is normal in size. Mild to moderate coronary artery calcifications are present. There is no pericardial or pleural effusion. There are patchy pulmonary groundglass opacities, consistent with areas of edema or alveolitis. There is diffuse bronchial wall thickening consistent with bronchitis. Lung window images demonstrate a 4 mm right lower lobe nodule, best seen on series 3, image #45. There is also a 5 mm nodule in the right middle lobe, best seen on image #46 of series 3. There are several other less than 5 mm in size nonspecific nodules noted.. Limited images of the upper abdomen are unremarkable. IMPRESSION: Lung-RADS category 2S, with the S designation for the patchy pulmonary ground glass opacities as described. Recommend 12 month follow up low dose chest CT. Reviewed, Interpreted and Dictated by Juan Yo III, MD Transcribed by Giovana Coronado Authenticated and [facility]
== END 2024-05-27 23:59 | disposition home or self-care (01) ==
LOC: RAD 10:07
PROVIDERS: PCP Internal Medicine; Visit Provider Internal Medicine
DX: F17.210 Nicotine dependence, cigarettes, uncomplicated (principal)
CPT/HCPCS: 71271